=== PATIENT | female | born 1970 | race African-American/Black ===

== ENCOUNTER 2022-04-01 05:28 | Emergency (ER) | payer BC, MEDICAID ==
[~2022-04-01] VITALS: Ht 165.1 cm; Wt 78.0 kg
--- NOTE | 2022-04-01 05:45 | NUR ---
TO ER BED 2. BIBSELF C/O FLULIKE SYMPTOMS, REQUESTING COVID TEST. PT IS ALERT AND ORIENTED. RR EVEN AND NON LABORED. CONNECTED TO MONITOR. WARM BLANKET PROVIDED. AWAITING MD PAZ
--- NOTE | 2022-04-01 05:47 | NUR ---
COVID SWAB COLLECTED AND SENT TO LAB
--- NOTE | 2022-04-01 06:18 | NUR ---
FLU SWAB COLLECTED AND SENT TO LAB
--- NOTE | 2022-04-01 07:00 | NUR ---
RECEIVED pt from mona marcial pt asleepy wating cxray and lab result
--- NOTE | 2022-04-01 07:13 | NUR ---
REPORT GIVEN TO MANOLO FLORES FOR ANNIE
--- NOTE | 2022-04-01 08:00 | NUR ---
ating for lab result
--- NOTE | 2022-04-01 09:00 | NUR ---
Patient discharged to home in stable condition. Written and verbal after care instructions given. Patient verbalizes understanding of instruction.
[2022-04-01 09:09] VITALS: BP 130/85
== END 2022-04-01 09:10 | disposition home or self-care (01) ==
LOC: ER 05:35
DX: J06.9 Acute upper respiratory infection, unspecified (principal); B97.89 Other viral agents as the cause of diseases classified elsewhere; Z20.822 Contact with and (suspected) exposure to COVID-19
CPT/HCPCS: 99284; 71045; 87426; 87804; C9803

== ENCOUNTER 2023-09-06 14:08 | Emergency (ER) | payer BC ==
[~2023-09-06] VITALS: Ht 165.1 cm; Wt 89.4 kg
[2023-09-06 14:50] VITALS: BP 159/96; TEMP 98.2; O2SAT 100
[2023-09-06 15:24] LABS: BASOPHILS # (AUTO) 0.1 K/uL (0.0-0.2); EOSINOPHILS # (AUTO) 0.1 K/uL (0.0-0.7); EOSINOPHILS % (AUTO) 2.1 % (0.0-6.0); HEMATOCRIT 35 % (33-45); HEMOGLOBIN 11.2 g/dL (11.5-14.8); LYMPHOCYTES # (AUTO) 2.9 K/uL (0.8-4.8); LYMPHOCYTES % (AUTO) 41.9 % (20.0-44.0); MEAN CORPUSCULAR HEMOGLOBIN 26 PG (26.0-33.0); MEAN CORPUSCULAR HGB CONC 32 g/dl (31.0-36.0); MEAN CORPUSCULAR VOLUME 82 fL (82-100); MONOCYTES # (AUTO) 0.4 K/uL (0.1-1.30); MONOCYTES % (AUTO) 5.2 % (2.0-12.0); NEUTROPHILS # (AUTO) 3.5 K/uL (1.8-8.9); NEUTROPHILS % (AUTO) 49.8 % (43.0-81.0); PLATELET COUNT (AUTO) 504 K/uL (150-450); RED BLOOD CELL COUNT(AUTO) 4.28 MIL/uL (4.0-5.2); RED CELL DISTRIBUTION WIDTH 15.2 % (11.5-15.0)
[2023-09-06 15:33] LABS: APPEARANCE,URINE Clear (CLEAR); BILIRUBIN,URINE Negative (NEGATIVE); BLOOD, URINE Negative Ery/uL (NEGATIVE); COLOR,URINE YELLOW (YELLOW); KETONES,URINE Negative (NEGATIVE); LEUKOCYTE ESTERASE ,URINE Small (NEGATIVE); NITRITE, URINE Negative (NEGATIVE); PROTEIN,URINE Negative (NEGATIVE); UGLUCOSE Negative (NEGATIVE)
[2023-09-06 15:39] LABS: CREATININE 0.9 mg/dL (0.6-1.3); POTASSIUM 3.7 mmol/L (3.5-5.1)
[2023-09-06 15:46] LABS: ALBUMIN 3.7 g/dL (3.4-5.0); BILIRUBIN,TOTAL 0.9 mg/dL (0.2-1.0); TOTAL PROTEIN, SERUM 7.2 g/dL (6.4-8.2)
[2023-09-06 16:11] LABS: RBC,URINE NONE SEEN /HPF (0-2)
[2023-09-06 16:12] LABS: ADD URINE CULTURE YES; BACTERIA,URINE Few /HPF (None Seen); YEAST,URINE Hyphal filaments /HPF (None Seen)
[2023-09-06 16:14] LABS: THYROID STIMULATING HORMONE 2.472 uIU/mL (0.358-3.74)
== END 2023-09-06 17:28 | disposition left against medical advice (07) ==
LOC: ER 14:08
DX: R60.0 Localized edema (principal); R73.03 Prediabetes; E78.2 Mixed hyperlipidemia
CPT/HCPCS: 36415; 80053-TC; 80061-TC; 81001; 84443-TC; 85025-TC; 87086-TC